=== PATIENT | male | born 1985 ===

== ENCOUNTER 2017-09-10 07:13 | Emergency (ER) | payer MEDICAID, OTHER ==
[2017-09-10 07:28] VITALS: BP 114/68
--- NOTE | 2017-09-10 07:38 | UC ---
FLU HPI - HPI Summary HPI Summary: 2-3 DAYS OF SUBJECTIVE FEVER, CHILLS, FATIGUE, SALCEDO, MYALGIAS, COUGH AND CONGESTION. HAS DECREASED APPETITE. SON TESTED POSITIVE FOR FLU. - History of Current Complaint Chief Complaint: UCGeneralIllness Stated Complaint: FLU LIKE SYMPTOMS Time Seen by Provider: 09/10/17 07:30 Hx Obtained From: Patient Onset/Duration: Gradual Onset, Lasting Days, Still Present Severity Currently: Moderate Severity Initially: Moderate Pain Intensity: 0 Pain Scale Used: 0-10 Numeric Associated Signs & Symptoms: Positive: Fever, Myalgia, Cough, Nasal Congestion, Headache - Allergy/Home Medications Allergies/Adverse Reactions: Allergies Allergy/AdvReac Type Severity Reaction Status Date / Time MS Bee Venom Allergy Swelling Verified 09/10/17 07:28 Home Medications: Home Medications Vitamin THERAPEUTIC TAB* [Theragran TAB*] 1 tab PO DAILY 09/10/17 [History Confirmed 09/10/17] PMH/Surg Hx/FS Hx/Imm Hx Previously Healthy: Yes - Surgical History Surgical History: None - Family History Known Family History: Positive: Hypertension - Social History Alcohol Use: Weekly Substance Use Type: None Smoking Status (MU): Light Every Day Tobacco Smoker Amount Used/How Often: 1/4 PPD Length of Time of Smoking/Using Tobacco: Since Age 14 Review of Systems Constitutional: Fever, Fatigue ENT: Nasal Discharge Respiratory: Cough Cardiovascular: Negative Gastrointestinal: Negative Musculoskeletal: Myalgia Neurological: Headache All Other Systems Reviewed And Are Negative: Yes Physical Exam Triage Information Reviewed: Yes Appearance: Well-Appearing, No Pain Distress, Well-Nourished Vital Signs: Initial Vital Signs Temp 98.4 F 09/10/17 07:20 Pulse 75 09/10/17 07:20 Resp 16 09/10/17 07:20 BP 114/68 09/10/17 07:20 Pulse Ox 100 09/10/17 07:20 Vital Signs Reviewed: Yes Eyes: Positive: Conjunctiva Clear ENT: Positive: Hearing grossly normal, Pharynx normal, TMs normal Neck: Positive: Supple, Nontender, Enlarged Nodes @ - MILDLY ENLARGED SPFL CERVICAL NODES Respiratory Exam: Normal Cardiovascular Exam: Normal Abdomen Description: Positive: Soft Musculoskeletal: Positive: No Edema Neurological: Positive: Alert Psychological: Positive: Age Appropriate Behavior Skin: Negative: rashes Flu Course/Dx - Differential Dx/Diagnosis Provider Diagnoses: INFLUENZA - PRESUMPTIVE Discharge - Discharge Plan Condition: Stable Disposition: HOME Prescriptions: Oseltamivir CAP* [Tamiflu CAP*] 75 mg PO BID #10 cap Patient Education Materials: Influenza (ED) Forms: *Work Release Referrals: No Primary Care Phys,NOPCP [Primary Care Provider] -
== END 2017-09-10 07:47 | disposition home or self-care (01) ==
LOC: UCCORT 07:13
DX: R50.9 Fever, unspecified (principal); R51 Headache; R53.83 Other fatigue; R05 Cough; R09.89 Other specified symptoms and signs involving the circulatory and respiratory systems; Z91.030 Bee allergy status; F17.210 Nicotine dependence, cigarettes, uncomplicated
CPT/HCPCS: 99202; G0463